=== PATIENT | female | born 1995 | race Caucasian/White ===

== ENCOUNTER 2020-10-16 01:19 | Emergency (ER) | payer BC | END 2020-10-16 02:55 | disposition home or self-care (01) | LOC: ER1 01:19 | DX: S01.01XA Laceration without foreign body of scalp, initial encounter (principal); W01.0XXA Fall on same level from slipping, tripping and stumbling without subsequent striking against object, initial encounter; F17.290 Nicotine dependence, other tobacco product, uncomplicated | CPT/HCPCS: 12013; 99283 ==